=== PATIENT | female | born 1930 | race African-American/Black ===

== ENCOUNTER 2017-06-18 14:45 | Emergency (ER) | payer OTHER ==
[~2017-06-18] VITALS: Ht 170.2 cm; Wt 77.6 kg
[~2017-06-18 14:45] MED LIST: ADULT LOW DOSE81 M1 PO; AMLODIPINE BESY10 MG PO; CARVEDILOL25 MG PO; FUROSEMIDE20 MG PO; LIPITOR10 MG PO; LIPITOR20 MG PO; LISINOPRIL40 MG PO; MIRALAX17 GM PO; PRINIVIL40 MG PO; Proventil,Ventolin H IH; Zithromax PO
[2017-06-18 15:15] LABS: HEMATOCRIT 50.1 % (36.0-46.0); HEMOGLOBIN 16.2 G/DL (11.9-15.5); MCHC 32.3 G/DL (30.0-36.0); MCV 89.8 FL (83-99); RBC DIS.WIDTH-CV 14.5 % (11.8-14.6); RBC DIS.WIDTH-SD 47.9 % (39-53); RED BLOOD COUNT 5.58 M/uL (3.80-5.20); WHITE BLOOD COUNT 11.6 K/uL (4.1-10.2)
[2017-06-18 15:24] LABS: ALBUMIN 3.7 g/dL (3.2-4.8); CHLORIDE 101 mEq/L (99-109); POTASSIUM 4.3 mEq/L (3.7-5.4); SODIUM 142 mEq/L (136-147)
[2017-06-18 15:27] LABS: GLUCOSE 131 mg/dL (70-99); TOTAL PROTEIN 8.1 g/dL (6.4-8.3)
[2017-06-18 15:29] LABS: TOTAL BILIRUBIN 0.7 mg/dL (0.0-1.0)
[2017-06-18 15:30] LABS: ALKALINE PHOSPHATASE 87 IU/L (3-129); CREATININE 1.1 mg/dL (0.6-1.3); GFR ESTIMATE (CALCULATED) > 59 mL/min/
[2017-06-18 15:31] LABS: UREA NITROGEN (BUN) 11 mg/dL (9-23)
[2017-06-18 15:32] LABS: AST (GOT) 18 IU/L (2-34)
[2017-06-18 15:33] LABS: ALT (GPT) 15 IU/L (3-49)
[2017-06-18 16:29] LABS: PLAT.SUFFICIENCY ADEQUATE; PLATELET COUNT 261 K/uL (156-360)
[2017-06-18 16:55] LABS: APPEARANCE CLEAR ((CLEAR)); BILIRUBIN NEGATIVE; BLOOD NEGATIVE; COLOR YELLOW ((YELLOW)); GLUCOSE (STRIP) NEGATIVE; KETONES NEGATIVE; LEUKOCYTES NEGATIVE; NITRITE NEGATIVE; PROTEIN (STRIP) 30; SPECIFIC GRAVITY 1.013 (1.000-1.030); UCUL ADDED? NO; UROBILINOGEN 0.2 MG/DL (0.2-1.0)
[2017-06-18 17:19] LABS: LIPASE 35 U/L (1.0-51.0)
[2017-06-18] MEDS ORDERED: ATORVASTATIN CA40 MG PO (19:03)
[2017-06-18] MEDS ORDERED: PROAIR HFA8.5 GM IH (19:03)
[2017-06-18] MEDS ORDERED: BREO ELLIPTA I1 EACH IH (19:07)
[2017-06-18 21:02] LABS: PTT 36.7 SEC (25-37)
[2017-06-18 21:08] VITALS: BP 177/102
== END 2017-06-18 21:09 | disposition short-term general hospital (02) ==
LOC: EME 14:45 → EDOF 18:54 → ENRESERV 18:56 → CANRESERV 19:08 → ENRESERV 19:08
PROVIDERS: Surgery
DX: K55.9 Vascular disorder of intestine, unspecified (principal); I10 Essential (primary) hypertension; J44.9 Chronic obstructive pulmonary disease, unspecified; E78.5 Hyperlipidemia, unspecified; I25.2 Old myocardial infarction; Z87.891 Personal history of nicotine dependence; Z88.0 Allergy status to penicillin; Z88.7 Allergy status to serum and vaccine
CPT/HCPCS: 74177; 80053; 81003; 83605; 83690; 85027; 85610; 85730; 99281; 99285; J1956; J7040; S0030